=== PATIENT | female | born 1955 | race Caucasian/White ===

== ENCOUNTER 2018-07-26 09:12 | Day surgery (SDC) | payer MEDICAID ==
[2018-07-26 09:38] VITALS: BMI 31.3
[2018-07-26] MEDS ORDERED: Lactated Ringer's 500 ML IV ONE (09:54)
[2018-07-26 09:58] VITALS: TEMP 97.5
[2018-07-26] MEDS ORDERED: Propofol 10 mg/ml Inj (20 ML) ONE ×2 (10:17)
[2018-07-26 11:07] VITALS: O2SAT 99
[2018-07-26 11:09] VITALS: BP 108/70; PULSE 68; RESP 12
== END 2018-07-26 12:47 | disposition home or self-care (01) ==
LOC: H.ENDO 09:12
PROVIDERS: ATTEND Internal Medicine Gastroenterology
DX: K30 Functional dyspepsia (principal); J45.909 Unspecified asthma, uncomplicated; E78.5 Hyperlipidemia, unspecified; I10 Essential (primary) hypertension; K31.89 Other diseases of stomach and duodenum; T18.2XXA Foreign body in stomach, initial encounter
CPT/HCPCS: 43239; 88305; J2001; J2704; J7120